=== PATIENT | male | born 1990 | race Caucasian/White ===

== ENCOUNTER 2025-04-12 17:09 | Emergency (ER) | payer SELFPAY ==
--- OUTSIDE RECORDS SUMMARY | 2025-04-12 17:14 | XMS_ITS | Clinical Summary ---
Author Organization [facility] Address [address] [place] [id number] Care Team Providers Care Computer Systems Security Analyst Name Role Phone Fabrizio Gonzalez MD Primary Care Provider + Allergies No known active allergies Medications No known medications Family History Medical History Relation Comments Cancer Father Diabetes Mother Relation Status Comments Father Mother Social History Tobacco Use Types Packs/Day Years Used Date Smoking Tobacco: Never Smokeless Tobacco: Never Alcohol Use Standard Drinks/Week Comments Never 0 (1 standard drink = 0.6 oz pur e alcohol) Sex and Gender Information Value Date Recorded Sex Assigned at Not on file Legal Sex Male 6:58 PM CDT Gender Identity Not on file Sexual Orientation Not on file Last Filed Vital Signs Vital Sign Reading Time Taken Comments Blood Pressure 124/79 05/25/2020 7:39 PM CDT Pulse 73 05/25/2020 7:39 PM CDT Temperature 36.4 C (97.5 F) 05/25/2020 7:39 PM CDT Respiratory Rate 18 05/25/2020 7:39 PM CDT Oxygen Saturation 98% 05/25/2020 7:39 PM CDT Inhaled Oxygen Concentration - - Weight 74.8 kg (165 lb) 05/25/2020 7:39 PM CDT Height 182.9 cm (6') 05/25/2020 7:39 PM CDT Body Mass Index 22.38 05/25/2020 7:39 PM CDT Plan of Treatment Health Maintenance Due Date Last Done Comments Annual Physical 1991 Hepatitis C 2006 DTaP, Tdap and Td Vaccines (6 - Tdap) 07/09/2011 07/08/2011, 06/08/1993, 06/02/1990, Additional history exists COVID-19 Vaccine ( season) 2024 Hepatitis B Vaccines Completed 10/20/1998, 05/22/1998, 04/23/1998, Additional history exists Meningococcal Vaccine Aged Out 05/27/2006 No sidney ayaz eligible based on patient's age to complete this topic Pneumococcal Vaccine: Pediatrics (0 to 5 Years) and At-Risk Patients (6 to 49 Years) Aged Out 05/27/2006 No longer eligible based on patient's age to complete this topic HPV Vaccines Aged Out No longer eligi ble based on patient's age to complete this topic Meningococcal B Vaccine Aged Out No l onger eligible based on patient's age to complete this topic RSV Immunizations Under 20 Months Aged Out No longer eligible based on patient's age to complete this topic Care Teams Computer Systems Security Analyst Relationship Specialty Start Date End Date Fabrizio Gonzalez MD [address] [place] [id number] PCP - General FAMILY PRACTICE 08/03/23
--- OUTSIDE RECORDS SUMMARY | 2025-04-12 17:14 | XMS_ITS | Encounter Summary ---
Author Organization [facility] Address [facility] [place] [address] Care Team Providers Care Stock Fitter Name Role Phone Magan Arora MD Primary Care Provider Unavailable None, Provider Primary Care Provider Unavaila ble Fabrizio Gonzalez MD Primary Care Provider + Encounter Details Date Type Department Care Team (Late st Contact Info) Description 06/06/2002 Abstract [facility] Conversion , Generic Conversion, Social History Tobacco Use Types Packs/Day Years Used Date Smoking Tobacco: Never Assessed Sex and Gender Information Value Date Recorded Sex Assigned at Not on file Legal Sex Male 6:58 PM CDT Gender Identity Not on file Sexual Orientation Not on file documented as of this encounter Plan of Treatment Not on file documented as of this encounter Visit Diagnoses Not on filedocumented in this encounter Care Teams Stock Fitter Relationship Specialty Start Date End Date Magan Arora MD PCP - General 04/22/13 05/24/20 None, ProviderMD PCP - General 05/25/20 08/02/23 Fabrizio Gonzalez MD [address] [facility] [address] [place] [address] PCP - General FAMILY PRACTICE 08/03/23 documented as of this encounter
[2025-04-12 17:26] VITALS: BP 141/83; PULSE 82; RESP 16; TEMP 37; O2SAT 98
--- NOTE | 2025-04-12 17:43 | ED_ITS ---
HPI - General Adult General Chief complaint: Skin/Abscess/Foreign Body Stated complaint: Skin/Abscess/Foreign Body History of Present Illness HPI narrative: Hesham Ireland is a 34-year-old male who presents today to have a few things like that. He states he has not been to a doctor in about 7 years he does not have a primary care physician. He states that his job does not offer health insurance so he usually avoids going to the doctor. He states that he has had the spider veins on his upper abdomen that he does want to get checked out to make sure they are okay. He also states that he has 2 small purple dots on his scrotum that he also does want to get checked out. He denies having any fevers denies testicular pain denies any swelling to his scrotum denies any penile discharge states he is in a monogamous relationship he has no concerns for sexually transmitted infections states he is urinating just fine. He denies any chest pain abdominal pain. Related Data Home Medications ?Medication ?Instructions ?Recorded ?Confirmed ?Last Taken ?Type No Home Medications 04/12/25 04/12/25 Unknown History Allergies Allergy/AdvReac Type Severity Reaction Status Date / Time No Known Allergies Allergy Verified 04/12/25 17:18 Review of Systems Review of Systems: All systems reviewed & are unremarkable except as noted in HPI and below Exam Narrative: GENERAL: Well-appearing, well-nourished, and in no acute distress. HEAD: Normocephalic, atraumatic. EYES: PERRLA and EOMI. ENT: Nares clear, no rhinorrhea or epistaxis. Mucous membranes moist. Oropharynx without tonsillar hypertrophy exudate or other lesions. NECK: Supple. Respiratory: no respiratory distress, unlabored respirations. HEART: Regular rate and rhythm. No murmur heard. Normal peripheral pulses. Scrotum without any swelling no erythema small areas appear to be within normal findings of his scrotum does not appear to be infection/ cyst/ abscess / bruising EXTREMITIES: Normal range of motion. No edema. SKIN: Warm, dry, no rash. NEURO: No focal deficits. Alert and oriented x3. PSYCH: Normal mood and affect. Course Course Level of Care: Express Care Visit Vital Signs Vital signs: Vital Signs Temperature 37.0 C 04/12/25 17:26 Pulse Rate 82 04/12/25 17:26 Respiratory Rate 16 04/12/25 17:26 Blood Pressure 141/83 H 04/12/25 17:26 Pulse Oximetry 98 04/12/25 17:26 Oxygen Delivery Room Air 04/12/25 17:26 Temperature 37.0 C 04/12/25 17:26 Pulse Rate 82 04/12/25 17:26 Respiratory Rate 16 04/12/25 17:26 Blood Pressure 141/83 H 04/12/25 17:26 Pulse Oximetry 98 04/12/25 17:26 Oxygen Delivery Room Air 04/12/25 17:26 Medical Decision Making MDM Narrative Medical decision making narrative: Exam is without any acute or concerning findings. patient is provided with referrals for a PCP Encouraged pt to continue to monitor the spots on his scrotum and if anything changes as far as pain / swelling/ redness then go to the ER otherwise this is likely a normal finding for him Patient denies any other concerns or questions , denies needing anything further then he does ask about a spot on his forearm that has been there for 5 years, appears to be a flesh colored mole / no redness/ swelling / itching Again same precautions provided He is agreeable to this plan and all questions answered., Medical Records Medical records reviewed: Yes I reviewed the external patient's medical records. Vital Signs Vital Signs: Vital Signs Temperature 37.0 C 04/12/25 17:26 Pulse Rate 82 04/12/25 17:26 Respiratory Rate 16 04/12/25 17:26 Blood Pressure 141/83 H 04/12/25 17:26 Pulse Oximetry 98 04/12/25 17:26 Oxygen Delivery Room Air 04/12/25 17:26 Temperature 37.0 C 04/12/25 17:26 Pulse Rate 82 04/12/25 17:26 Respiratory Rate 16 04/12/25 17:26 Blood Pressure 141/83 H 04/12/25 17:26 Pulse Oximetry 98 04/12/25 17:26 Oxygen Delivery Room Air 04/12/25 17:26 vitals reviewed by me Discharge Plan Discharge Clinical Impression: Spider veins, Well adult health check Patient Disposition: Home Condition: Stable Instructions: Antibiotic Form Additional Instructions: Continue to monitor your areas of concern as discussed Establish care with a PCP If you develop any worsening or concerning symptoms as always you may return here or you can seek emergency care. Patient Language: Ecuadorean Prescriptions: No Action No Home Medications Follow-up/Referrals: PHYSICIAN,MANAGER MARITIME [Primary Care Provider] - Time of Disposition: 17:46
== END 2025-04-12 17:50 | disposition home or self-care (01) ==
PROVIDERS: Emergency Provider Nurse Practitioner Family
DX: I78.1 Nevus, non-neoplastic (principal)
CPT/HCPCS: 99202; G0463